=== PATIENT | female | born 1960 | race Caucasian/White ===

== ENCOUNTER 2016-09-07 17:56 | Emergency (ER) | payer OTHER ==
[2016-09-07 18:16] VITALS: BP 114/72
--- NOTE | 2016-09-07 18:30 | UC ---
General HPI - HPI Summary HPI Summary: pt presents with c/o of possible adverse drug reaction.has c/o shaking, nausea, dizziness, irritability, SHULTZ and nausea Pt began effexor on 08/26 and has noted c/o dizziness, and occasional outbreaks of hives that have been managed successfully with OTC benadryl. - History of Current Complaint Chief Complaint: UCGeneralIllness Stated Complaint: REACTION TO MEDICATION Time Seen by Provider: 09/07/16 18:21 Hx Obtained From: Patient Onset/Duration: Gradual Onset, Lasting Days, Still Present Timing: Constant Onset Severity: Mild Current Severity: Mild Associated Signs & Symptoms: Positive: Confusion, Dizziness, Headache, Nausea - Allergy/Home Medications Allergies/Adverse Reactions: Allergies Allergy/AdvReac Type Severity Reaction Status Date / Time Amitriptyline Allergy Severe anxiety, Verified 09/07/16 18:16 insomnia,weight gain, depression Buspirone [From Buspar] Allergy Severe ANAPHLAXSIS Verified 09/07/16 18:16 Piroxicam [From Feldene] Allergy Severe ANAPHLAXSIS Verified 09/07/16 18:16 Pumice Stone Allergy Severe Anaphylatic Verified 09/07/16 18:16 Shock Topiramate [From Topamax] Allergy Severe Blurred Verified 09/07/16 18:16 vision, insomnia,wieight gain,dysconesia, Zonisamide [From Zonegran] Allergy Severe DIZZY,VERTI Verified 09/07/16 18:16 GO Adhesive Tape Allergy Intermediate Rash Verified 09/07/16 18:16 Latex Allergy Intermediate Rash Verified 09/07/16 18:16 Milnacipran [From Savella] Allergy Intermediate WATER Verified 09/07/16 18:16 RETENTION NSAIDs Allergy Intermediate FLUID Verified 09/07/16 18:16 RETENTION Buprenorphine [From Butrans] Allergy FULL BODY Verified 09/07/16 18:16 RASH Hydrocodone AdvReac Intermediate Leg Verified 09/07/16 18:16 Swelling Pregabalin [From Lyrica] AdvReac Intermediate wt gain, Verified 09/07/16 18:16 depression Anti depressants Allergy Severe Increased Uncoded 09/07/16 18:16 anxiety, anger, weight gain, blurred vision Home Medications: Home Medications Cyclosporine 0.05% OPHTH (NF) [Restasis 0.05% OPHTH] 1 drop BOTH EYES BID [History Confirmed 09/07/16] Tizanidine HCl [Zanaflex] 2 tab PO TID 09/07/16 [History Confirmed 09/07/16] Venlafaxine EXT RELEASE CAP* [Effexor Xr CAP*] 75 mg PO DAILY 09/07/16 [History Confirmed 09/07/16] traZODone TAB* [Desyrel TAB*] 200 mg PO BEDTIME 09/07/16 [History Confirmed 03/25] PMH/Surg Hx/FS Hx/Imm Hx Previously Healthy: No Psychological History: Anxiety, Depression - Surgical History Surgical History: Yes Surgery Procedure, Year, and Place: GASTRIC BYPASS, HYSTERECTOMY 2011, 4X C- SECT , TUBAL 1986, [place], [place],. LIPOMA REMOVED FROM RIGHT FOOT 2009 - Family History Known Family History: Positive: Cardiac Disease - Social History Occupation: Unemployed Lives: With Family Alcohol Use: None Substance Use Type: None, Prescribed Smoking Status (MU): Never Smoked Tobacco Have You Smoked in the Last Year: No Household Exposure Type: Cigarettes - Immunization History Most Recent Tetanus Shot: 2011 Review of Systems Constitutional: Other - tremors Skin: Negative Eyes: Negative ENT: Negative Respiratory: Negative Cardiovascular: Negative Gastrointestinal: Nausea Genitourinary: Negative Motor: Negative Neurovascular: Negative Musculoskeletal: Myalgia Neurological: Other - tremors Psychological: Anxious All Other Systems Reviewed And Are Negative: Yes Physical Exam Triage Information Reviewed: Yes Appearance: Well-Appearing Vital Signs: Initial Vital Signs Temp 98.4 F 09/07/16 18:07 Pulse 102 09/07/16 18:07 Resp 17 09/07/16 18:07 BP 114/72 09/07/16 18:07 Pulse Ox 98 09/07/16 18:07 Vital Signs Reviewed: Yes Eye Exam: Normal ENT Exam: Normal Neck exam: Normal Respiratory Exam: Normal Cardiovascular Exam: Normal Musculoskeletal Exam: Normal Neurological Exam: Normal Psychological Exam: Normal Skin Exam: Normal Course/Dx - Differential Dx - Multi-Symptom Provider Diagnoses: possible adverse drug reaction Discharge - Discharge Plan Condition: Stable Disposition: HOME Patient Education Materials: Adverse Drug Reaction (ED) Referrals: Curly Ray MD [Primary Care Provider] - If Needed Additional Instructions: Please follow up with your mental health provider as scheduled for tomorrow. Please use OTC Benadryl as needed.
== END 2016-09-07 18:42 | disposition home or self-care (01) ==
LOC: UCCORT 17:56
DX: R42 Dizziness and giddiness (principal); R11.0 Nausea; R51 Headache; L50.9 Urticaria, unspecified; F41.9 Anxiety disorder, unspecified; F32.9 Major depressive disorder, single episode, unspecified; Z98.84 Bariatric surgery status; Z90.710 Acquired absence of both cervix and uterus; Z88.8 Allergy status to other drugs, medicaments and biological substances; Z91.040 Latex allergy status; Z88.6 Allergy status to analgesic agent; Z88.5 Allergy status to narcotic agent; Z91.048 Other nonmedicinal substance allergy status; Z77.22 Contact with and (suspected) exposure to environmental tobacco smoke (acute) (chronic)
CPT/HCPCS: 99212; G0463

== ENCOUNTER 2016-11-04 10:52 | Emergency (ER) | payer OTHER ==
[2016-11-04 11:11] VITALS: BP 117/63
--- NOTE | 2016-11-04 11:59 | RAD ---
INDICATION: Left knee pain. Fall. COMPARISON: None TECHNIQUE: AP, lateral, tunnel, and sunrise views were obtained. FINDINGS: There is no acute bony change. There is minor condylar spurring and minor patellofemoral spurring. There is no joint effusion. IMPRESSION: MINOR OSTEOARTHRITIS. NO ACUTE FINDINGS.
--- NOTE | 2016-11-04 11:59 | RAD ---
INDICATION: Bilateral rib pain. COMPARISON: None TECHNIQUE: Multiple views of the ribs were obtained. FINDINGS: Bones: There is no evidence of acute rib fracture. LUNGS: The lungs are clear. There is no pneumothorax. Pleural spaces: There is no evidence of hemothorax. Other: None IMPRESSION: NO ACUTE RIB FRACTURE.
--- NOTE | 2016-11-04 12:00 | RAD ---
INDICATION: Left ankle pain. Fall. COMPARISON: None TECHNIQUE: AP, lateral, and oblique views were obtained. FINDINGS: There is no acute fracture or dislocation. There is no significant soft tissue swelling. IMPRESSION: NO ACUTE BONY FINDINGS.
--- NOTE | 2016-11-04 12:25 | ED ---
Adult Trauma - HPI Summary HPI Summary: 56F presents with rib pain, left hip, knee, and ankle pain since yesterday. She states that she was lifting a pot of water and felt a pop in her ribs. She states she fell with the pot and twisted her left ankle and landed on left side. She admits to left side ankle, knee, and hip pain. She is able to ambulate with slight limp. She denies any numbness or tingling. She denies any previous injury to the area. She denies any abdominal pain. - History of Current Complaint Chief Complaint: UCLowerExtremity Stated Complaint: BILATERAL RIB,LEFT ANKLE PAIN Time Seen by Provider: 11/04/16 10:58 - Allergy/Home Medications Allergies/Adverse Reactions: Allergies Allergy/AdvReac Type Severity Reaction Status Date / Time Amitriptyline Allergy Severe anxiety, Verified 11/04/16 11:00 insomnia,weight gain, depression Buspirone [From Buspar] Allergy Severe ANAPHLAXSIS Verified 11/04/16 11:00 Piroxicam [From Feldene] Allergy Severe ANAPHLAXSIS Verified 11/04/16 11:00 Pumice Stone Allergy Severe Anaphylatic Verified 11/04/16 11:00 Shock Topiramate [From Topamax] Allergy Severe Blurred Verified 11/04/16 11:00 vision, insomnia,wieight gain,dysconesia, Zonisamide [From Zonegran] Allergy Severe DIZZY,VERTI Verified 11/04/16 11:00 GO Adhesive Tape Allergy Intermediate Rash Verified 11/04/16 11:00 Latex Allergy Intermediate Rash Verified 11/04/16 11:00 Milnacipran [From Savella] Allergy Intermediate WATER Verified 11/04/16 11:00 RETENTION NSAIDs Allergy Intermediate FLUID Verified 11/04/16 11:00 RETENTION Buprenorphine [From Butrans] Allergy FULL BODY Verified 11/04/16 11:00 RASH Hydrocodone AdvReac Intermediate Leg Verified 11/04/16 11:00 Swelling Pregabalin [From Lyrica] AdvReac Intermediate wt gain, Verified 11/04/16 11:00 depression Anti depressants Allergy Severe Increased Uncoded 11/04/16 11:00 anxiety, anger, weight gain, blurred vision Home Medications: Home Medications Aspirin EC Low Dose* [Ecotrin EC Low Dose 81 MG*] 81 mg PO DAILY 11/04/16 [ History Confirmed 11/04/16] Gabapentin CAP(*) [Neurontin 100 mg CAP(*)] 100 mg PO TID 11/04/16 [History Confirmed 11/04/16] PMH/Surg Hx/FS Hx/Imm Hx Endocrine/Hematology History: Reports: Other Endocrine/Hematological Disorders - Pernicious Anemia Respiratory History: Reports: Other Respiratory Problems/Disorders - Shortness of breath GI History: Reports: Other GI Disorders - Lactose intolerant Musculoskeletal History: Reports: Hx Fibromyalgia Denies: Other Musculoskeletal History Neurological History: Reports: Other Neuro Impairments/Disorders - fibromyalgia - Surgical History Surgery Procedure, Year, and Place: GASTRIC BYPASS, HYSTERECTOMY 2011, 4X C- SECT , TUBAL 1986, [place], [place],. LIPOMA REMOVED FROM RIGHT FOOT 2009 Infectious Disease History: No Infectious Disease History: Denies: Traveled Outside the [place] in Last 30 Days - Family History Known Family History: Positive: Cardiac Disease - Social History Alcohol Use: None Substance Use Type: Reports: None Smoking Status (MU): Never Smoked Tobacco Have You Smoked in the Last Year: No Review of Systems Negative: Fever Negative: Chest Pain Negative: Shortness Of Breath Positive: Myalgia - left knee, ankle, hip, and ribs All Other Systems Reviewed And Are Negative: Yes Physical Exam Triage Information Reviewed: Yes Vital Signs On Initial Exam: Initial Vitals Temp Pulse Resp BP Pulse Ox 98.5 F 94 16 117/63 96 11/04/16 11:00 11/04/16 11:00 11/04/16 11:00 11/04/16 11:00 11/04/16 11:00 Vital Signs Reviewed: Yes Appearance: Positive: Well-Appearing Skin: Positive: Warm, Dry Head/Face: Positive: Normal Head/Face Inspection Eyes: Positive: Normal, EOMI, GRACE, Conjunctiva Clear ENT: Positive: Normal ENT inspection, Pharynx normal, TMs normal Respiratory/Lung Sounds: Positive: Clear to Auscultation, Breath Sounds Present , Other - tenderness on anterior ribs 10-12 Cardiovascular: Positive: Normal, RRR Abdomen Description: Positive: Nontender, Soft Bowel Sounds: Positive: Present Musculoskeletal: Positive: Strength/ROM Intact - lef hip, knee, ankle, Other - good pulses, capillary refill<2 secs, tenderness over lateral aspect of ankle, tenderness over patella Neurological: Positive: Normal Psychiatric: Positive: Normal Diagnostics - Vital Signs Vital Signs Temp Pulse Resp BP Pulse Ox 11/04/16 11:00 98.5 F 94 16 117/63 96 - Laboratory Lab Statement: Any lab studies that have been ordered have been reviewed, and results considered in the medical decision making process. - Radiology ribs Xray Interpretation: No Acute Changes Radiology Interpretation Completed By: Radiologist ankle Xray Interpretation: No Acute Changes Radiology Interpretation Completed By: Radiologist knee Xray Interpretation: No Acute Changes Radiology Interpretation Completed By: Radiologist Adult Trauma Course/Dx - Course Course Of Treatment: 56F presents with rib pain, left hip, knee, and ankle pain since yesterday. She states that she was lifting a pot of water and felt a pop in her ribs. She states she fell with the pot and twisted her left ankle and landed on left side. She admits to left side ankle, knee, and hip pain. She is able to ambulate with slight limp. She denies any numbness or tingling. She denies any previous injury to the area. She denies any abdominal pain. on exam tenderness to ribs, left ankle and knee. no edema noted of area, tender over lateral aspect of ankle. xray knee, ankle, and ribs normal. due to being able to ambulate hip not likely broken. told to do RICE. dicussed pain options and decided on prednisone and patient understands and agrees with plan. - Diagnoses Differential Diagnosis/HQI/PQRI: Positive: Contusion(s), Fracture, Sprain Provider Diagnoses: Rib pain, Left ankle injury, Left knee injury, Injury of left hip Discharge - Discharge Plan Condition: Good Disposition: HOME Prescriptions: predniSONE TAB* [Deltasone TAB*] 20 mg PO DAILY #5 tab Patient Education Materials: Ankle Sprain (ED) Referrals: Curly Ray MD [Primary Care Provider] - Additional Instructions: Take steroid once a day for 5 days Apply ice, rest, elevate Make sure to take deep breath throughout the day to prevent pneumonia Follow up with primary care physician within 5 days Return to ED if develop any new or worsening symptoms
== END 2016-11-04 12:32 | disposition home or self-care (01) ==
LOC: UCCORT 10:52
DX: S79.912A Unspecified injury of left hip, initial encounter (principal); R07.81 Pleurodynia; S89.92XA Unspecified injury of left lower leg, initial encounter; S99.912A Unspecified injury of left ankle, initial encounter; Z88.5 Allergy status to narcotic agent; X58.XXXA Exposure to other specified factors, initial encounter; Z91.048 Other nonmedicinal substance allergy status; Z88.6 Allergy status to analgesic agent; Z88.8 Allergy status to other drugs, medicaments and biological substances
CPT/HCPCS: 71110; 99212; G0463